=== PATIENT | male | born 1925 | race Caucasian/White ===

== ENCOUNTER → 2016-06-10 | Outpatient (CLI) | payer MEDICARE, OTHER ==
[~2016-06-10] MED LIST: ALPR.25 PO; ASPI1TAB69 PO; DILT60TA PO; FURO1TAB62 PO; METO50TA PO; MULTTAB67 PO; OMEP20TA PO; POTA10CA PO; PRAV20TA2 PO; ZOFR4TAB PO; [UNRECOGNIZED DRUG - CODE] IMPLANT
[2016-06-10 13:15] LABS: AUTOMATED NEUTROPHIL # 5.2 TH/MM3 (1.8-7.7); BASOPHIL % 0.5 % (0.0-2.0); EOSINOPHIL # 0.6 TH/MM3 (0-0.4); EOSINOPHIL % 7.2 % (0.0-4.0); HEMATOCRIT 37.7 % (39.0-51.0); HEMO FLAGS DIFF FINAL; LYMPH % 20.5 % (9.0-44.0); LYMPHOCYTE # 1.8 TH/MM3 (1.0-4.8); MEAN CELL VOLUME 93.1 FL (80.0-100.0); MEAN CORPUSCULAR HEMOGLOBIN 29.9 PG (27.0-34.0); MEAN CORPUSCULAR HGB CONC 32.1 % (32.0-36.0); MONO % 11.7 % (0.0-8.0); NEUT % 60.1 % (16.0-70.0); PLATELET COUNT 167 TH/MM3 (150-450); RED BLOOD COUNT 4.05 MIL/MM3 (4.50-5.90); RED CELL DISTRIBUTION WIDTH 14.7 % (11.6-17.2); WHITE BLOOD COUNT 8.7 TH/MM3 (4.0-11.0)
[2016-06-10 13:30] LABS: ALT (GPT) 24 U/L (12-78); ANION GAP 2 MEQ/L (5-15); AST (GOT) 18 U/L (15-37); BICARBONATE 34.5 MEQ/L (21.0-32.0); BLOOD UREA NITROGEN 29 MG/DL (7-18); CHLORIDE 105 MEQ/L (98-107); GLOMERULAR FILTRATION RATE 67 ML/MIN (>89); POTASSIUM 4.2 MEQ/L (3.5-5.1); SODIUM (NA) 141 MEQ/L (136-145)
[2016-06-10 13:31] LABS: ALKALINE PHOSPHATASE 81 U/L (45-117); TOTAL BILIRUBIN ADULT 0.6 MG/DL (0.2-1.0)
== END ==
LOC: PLAB 10:58
PROVIDERS: ATTEND Urology
DX: R53.83 Other fatigue (principal); E29.1 Testicular hypofunction; Z12.5 Encounter for screening for malignant neoplasm of prostate; Z79.899 Other long term (current) drug therapy
CPT/HCPCS: 36415; 80053; 84403; 85025; G0103

== ENCOUNTER 2016-06-18 18:33 | Inpatient (IN) | payer MEDICARE, OTHER ==
[~2016-06-18] VITALS: Ht 170.2 cm; Wt 65.0 kg
[2016-06-18 18:42] VITALS: BP 125/59; PULSE 114; RESP 18; TEMP 98.8; O2SAT 96
[2016-06-18 21:03] VITALS: BP 140/69; PULSE 96; RESP 18; O2SAT 95
[2016-06-18] MEDS ORDERED: PIPERACIL-TAZO 4.5 GM PREMIX 100 ML IV STA (21:07)
[2016-06-18] MEDS ORDERED: VANCOMYCIN INJ 900 MG in SODIUM CHLOR 0.9% 250 ML INJ 250 ML IV STA (21:07)
--- NOTE | 2016-06-18 21:12 | PD ---
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 He had a pain pump implanted in the right side of his abdomen on January 14. He needs a pain pump because he has chronic back and knee pain. He gets morphine via the pump. He was implanted by Dr. Sosa. He had some nausea yesterday. Today earlier today he noted that the site of the pump was red and swollen. It is painful. PFSH Past Medical History Hx Anticoagulant Therapy: Yes (162 ASA DAILY) Arthritis: Yes (OA & RA) Atrial Fibrillation: Yes Autoimmune Disease: No Anxiety: Yes Heart Rhythm Problems: No Cancer: No Cardiac Catheterization: Yes (2001) Cardiovascular Problems: Yes (HTN, CHOL) High Cholesterol: No Chest Pain: No Congestive Heart Failure: No Diabetes: No Diminished Hearing: No Endocrine: No Gastrointestinal Disorders: No Glaucoma: No Genitourinary: Yes Hepatitis: No Hiatal Hernia: No Heparin Induced Thrombocytopen: No Hypertension: Yes Immune Disorder: No Implanted Vascular Access Dvce: Yes Musculoskeletal: Yes (POLYMYALGIA RHEUMATICA) Neurologic: No Psychiatric: No Respiratory: No Integumentary: No Immunizations Current: Yes Myocardial Infarction: No Thyroid Disease: No Ulcer: Yes (01-13-2001.) Tetanus Vaccination: < 5 Years Influenza Vaccination: Yes Past Surgical History Abdominal Surgery: Yes ( COLOSTOMY -1999 WITH REVERSAL 6 MON LATER-1999.BENIGN TUMOR RESECTION) Cardiac Surgery: Yes (PACEMAKER) Coronary Artery Bypass Graft: No Eye Surgery: Yes (DETACHED RETINA) Neurologic Surgery: Yes (CARPEL TUNNEL RELEASE RIGHT HAND) Pacemaker: Yes (MEDTRONIC) Thoracic Surgery: No Tonsillectomy: Yes Other Surgery: Yes (ABD HERNIA REPAIR-1991.) Family History Family Myocardial Infarction: Yes (FATHER AND BROTHER IN) Social History Alcohol Use: No Tobacco Use: No (QUIT 1958) Substance Use: No Allergies-Medications (Allergen,Severity, Reaction): Coded Allergies: Contrast Media (Verified Allergy, Severe, EDEMA, 06/18/16) Iodine (Verified Allergy, Severe, "SWELLS", 06/18/16) Pradaxa (Verified Allergy, Severe, SHAKES/WEAKNESS, 06/18/16) Sulfa (Verified Allergy, Severe, NAUSEA, 06/18/16) RASH Iohexol (OMNIPAQUE) (Verified Allergy, Unknown, IV REACTION ON MEDROL.DO NOT GIVE!!!!!, 06/18/16) Uncoded Allergies: REGLAN WITH MORPHINE (Adverse Reaction, Severe, HALLUCINATE, 03/26/16) CONFIRMED 11/02/13 TM.. Reported Meds & Prescriptions Reported Meds & Active Scripts Active Reported Morphine Inj (Morphine Sulfate) Unknown Strength Inj 10 % IMPLANT DIRECTED Pravastatin 20 Mg Tab 20 Mg PO HS Potassium Chloride ER (Potassium Chloride) 10 Meq Cap 10 Meq PO DAILY PRN Zofran (Ondansetron HCl) 4 Mg Tab 4 Mg PO Q6HR PRN Omeprazole 20 Mg Tab 20 Mg PO DAILY Multiple Vitamin 1 Tab 1 Tab PO DAILY Metoprolol Tartrate 50 Mg Tab 50 Mg PO BID Lasix (Furosemide) 20 Mg Tab 20 Mg PO DAILY PRN Diltiazem (Diltiazem HCl) 60 Mg Tab 60 Mg PO QID Aspirin 81 Mg Tabdr 162 Mg PO HS Xanax (Alprazolam) 0.25 Mg Tab 0.25 Mg PO DAILY PRN Review of Systems General / Constitutional: No: Fever, Chills Eyes: No: Diploplia, Blurred Vision HENT: No: Headaches Cardiovascular: No: Chest Pain or Discomfort, Palpitations Respiratory: No: Cough, Shortness of Breath Gastrointestinal: No: Vomiting, Diarrhea Genitourinary: No: Frequency, Dysuria Musculoskeletal: No: Myalgias Skin: Positive Rash Neurologic: No: Weakness Psychiatric: No: Depression Endocrine: No: Heat Intolerance Physical Exam Narrative GENERAL: Well-developed male SKIN: Warm and dry. On the right side of the abdomen there is an area of erythema and warmth which overlies his pain pump HEAD: Atraumatic. Normocephalic. EYES: Pupils equal and round. No scleral icterus. No injection or drainage. ENT: No nasal bleeding or discharge. Mucous membranes pink and moist. NECK: Trachea midline. No JVD. CARDIOVASCULAR: Regular rate and rhythm. No murmur appreciated. RESPIRATORY: No accessory muscle use. Clear to auscultation. Breath sounds equal bilaterally. GASTROINTESTINAL: Abdomen soft, non-tender, nondistended. Hepatic and splenic margins not palpable. MUSCULOSKELETAL: No obvious deformities. No clubbing. No cyanosis. No edema. NEUROLOGICAL: Awake and alert. No obvious cranial nerve deficits. Motor grossly within normal limits. Normal speech. PSYCHIATRIC: Appropriate mood and affect; insight and judgment normal. Data Data Last Documented VS Vital Signs Date Time Temp Pulse Resp B/P Pulse Ox O2 Delivery O2 Flow Rate FiO2 06/18/16 22:41 100 18 135/66 95 Room Air 06/18/16 18:42 98.8 Orders Complete Blood Count With Diff (06/18/16 21:) Comprehensive Metabolic Panel (06/18/16 21:07) Prothrombin Time / Inr (Pt) (06/18/16 21:07) Act Partial Throm Time (Ptt) (06/18/16:07) Lactic Acid Sepsis Protocol (06/18/16:07) Urinalysis - C+S If Indicated (06/18/16 21:07) Blood Culture (06/18/16 21:07) Blood Glucose (06/18/16 21:07) Ecg Monitoring (06/18/16 21:) Iv Access Insert/Monitor (06/18/16 21:07) Oximetry (06/18/16 21:07) Oxygen Administration (06/18/16 21:07) Acetaminophen (Tylenol) (06/18/16 21:15) Ct Abd/Pel W/O Iv Contrast (06/18/16 21:07) Piperacil-Tazo 4.5 Gm Premix (Zosyn 4.5 (06/18/16 21:07) Vancomycin Inj (Vancomycin Inj) (06/18/16 21:07) Aspirin Ec (Ecotrin Ec) (06/19/16 21:00) Pantoprazole (Protonix) (06/19/16 09:00) Pravastatin (Pravachol) (06/19/16 21:00) Admit Order (Ed Use Only) (06/18/16 23:09) Labs Laboratory Tests Test 06/18/16 21:20 White Blood Count 14.1 TH/MM3 Red Blood Count 4.80 MIL/MM3 Hemoglobin 14.5 GM/DL Hematocrit 43.0 % Mean Corpuscular Volume 89.7 FL Mean Corpuscular Hemoglobin 30.2 PG Mean Corpuscular Hemoglobin 33.7 % Concent Red Cell Distribution Width 13.3 % Platelet Count 161 TH/MM3 Mean Platelet Volume 7.4 FL Neutrophils (%) (Auto) 70.3 % Lymphocytes (%) (Auto) 17.4 % Monocytes (%) (Auto) 8.9 % Eosinophils (%) (Auto) 2.5 % Basophils (%) (Auto) 0.9 % Neutrophils # (Auto) 9.8 TH/MM3 Lymphocytes # (Auto) 2.5 TH/MM3 Monocytes # (Auto) 1.3 TH/MM3 Eosinophils # (Auto) 0.4 TH/MM3 Basophils # (Auto) 0.1 TH/MM3 CBC Comment DIFF FINAL Differential Comment Prothrombin Time 11.4 SEC Prothromb Time International 1.0 RATIO Ratio Activated Partial 32.5 SEC Thromboplast Time Sodium Level 133 MEQ/L Potassium Level 4.5 MEQ/L Chloride Level 95 MEQ/L Carbon Dioxide Level 30.6 MEQ/L Anion Gap 7 MEQ/L Blood Urea Nitrogen 22 MG/DL Creatinine 1.00 MG/DL Estimat Glomerular Filtration 70 ML/MIN Rate Random Glucose 91 MG/DL Lactic Acid Level 1.3 mmol/L Calcium Level 8.1 MG/DL Total Bilirubin 1.4 MG/DL Aspartate Amino Transf 21 U/L (AST/SGOT) Alanine Aminotransferase 22 U/L (ALT/SGPT) Alkaline Phosphatase 83 U/L Total Protein 6.4 GM/DL Albumin 3.2 GM/DL [facility] Medical Decision Making Medical Screen Exam Complete: Yes Emergency Medical Condition: Yes Medical Record Reviewed: Yes Differential Diagnosis Differential includes abdominal wall cellulitis, abscess Narrative Course White count is elevated at 14,000. Patient has been started on Zosyn and vancomycin. Lactic acid level is 1.3 Sepsis Criteria SIRS Criteria (2 or more): Temp > 100.9 or < 96.8, WBC > 85033, < 4000 or > 10 % bands Sepsis Criteria (SIRS+source): Infect source susp/known Diagnosis Primary Impression: Cellulitis, abdominal wall Admitting Information Admitting Physician Requests: Admit Noel Thomas MD Jun 18, 2016 21:12
[2016-06-18] MEDS ORDERED: ACETAMINOPHEN 325 MG TAB PO ONE (21:15)
[2016-06-18 21:29] VITALS: O2SAT 95
[2016-06-18 21:33] LABS: AUTOMATED NEUTROPHIL # 9.8 TH/MM3 (1.8-7.7); BASOPHIL # 0.1 TH/MM3 (0-0.2); BASOPHIL % 0.9 % (0.0-2.0); EOSINOPHIL # 0.4 TH/MM3 (0-0.4); EOSINOPHIL % 2.5 % (0.0-4.0); HEMO FLAGS DIFF FINAL; LYMPH % 17.4 % (9.0-44.0); LYMPHOCYTE # 2.5 TH/MM3 (1.0-4.8); MEAN CELL VOLUME 89.7 FL (80.0-100.0); MEAN CORPUSCULAR HEMOGLOBIN 30.2 PG (27.0-34.0); MEAN CORPUSCULAR HGB CONC 33.7 % (32.0-36.0); MONO % 8.9 % (0.0-8.0); NEUT % 70.3 % (16.0-70.0); PLATELET COUNT 161 TH/MM3 (150-450); RED CELL DISTRIBUTION WIDTH 13.3 % (11.6-17.2); WHITE BLOOD COUNT 14.1 TH/MM3 (4.0-11.0)
[2016-06-18 21:40] LABS: CHLORIDE 95 MEQ/L (98-107); POTASSIUM 4.5 MEQ/L (3.5-5.1); SODIUM (NA) 133 MEQ/L (136-145)
[2016-06-18 21:43] LABS: ANION GAP 7 MEQ/L (5-15); BICARBONATE 30.6 MEQ/L (21.0-32.0)
[2016-06-18 21:44] LABS: BLOOD UREA NITROGEN 22 MG/DL (7-18)
[2016-06-18 21:45] LABS: APTT (PATIENT) 32.5 SEC (24.3-30.1); PROTHROMBIN TIME - PATIENT 11.4 SEC (9.8-11.6)
[2016-06-18 21:46] LABS: ALT (GPT) 22 U/L (12-78)
[2016-06-18 21:47] LABS: AST (GOT) 21 U/L (15-37); GLOMERULAR FILTRATION RATE 70 ML/MIN (>89)
[2016-06-18 21:48] LABS: TOTAL BILIRUBIN ADULT 1.4 MG/DL (0.2-1.0)
[2016-06-18 21:49] LABS: ALKALINE PHOSPHATASE 83 U/L (45-117)
[2016-06-18 22:41] VITALS: BP 135/66; PULSE 100; RESP 18; O2SAT 95
--- NOTE | 2016-06-18 22:45 | RADHPO ---
EXAM DATE/TIME: 06/18/2016 22:03 [place] COMPARISON: CT ABDOMEN & PELVIS W/O CONTRAST, March 26, 2016, 10:10. INDICATIONS : Pain, redness, and swelling at site of pain pump. ORAL CONTRAST: No oral contrast ingested. RADIATION DOSE: 7.56 CTDIvol (mGy) MEDICAL HISTORY : Hypertension. Gastric ulcers. SURGICAL HISTORY : Pacemaker. Colectomy. Pain pump. ENCOUNTER: Initial ACUITY: 2 days PAIN SCALE: 7/10 LOCATION: Right lower quadrant TECHNIQUE: Volumetric scanning of the abdomen and pelvis was performed. Using automated exposure control and ad justment of the mA and/or kV according to patient size, radiation dose was kept as low as reasonably achievable to obtain optimal diagnostic quality images. FINDINGS: Compare March 2016. Small bilateral pleural effusions present. Pacer leads overlie right atrium an d right ventricle. Minimal basilar atelectasis. No acute findings in the liver, spleen, adrenals or pancreas. Previous bilateral renal cysts again no ulysses. Calcified gallstones present in gallbladder. There is mild constipation, especially rectal. No significant mural thickening of bowel on the curren t exam. No bowel obstruction. No free air or significant free fluid. 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 There is some soft tissue swelling and edematous changes around the infusion pump most characteristic of a cellulitis. No discrete or drainable abscess identified. CONCLUSION: 1. Soft tissue swelling and edema around the infusion pump in right lower quadrant most characteristi c of cellulitis. No discrete abscess identified. 2. No acute findings within the abdomen. Mild constipation. Multiple gallstones. Mild anasarca. Basil ar lung airspace disease has improved. Ki Maldonado MD on June 18, 2016 at 22:38 Board Certified Radiologist. This report was verified electronically.
[2016-06-18] MEDS ORDERED: SODIUM CHLORIDE 0.9% FLUSH 5 ML FLUSH FLUSH PRN (23:15)
[2016-06-18] MEDS ORDERED: ACETAMINOPHEN 325 MG TAB PO PRN (23:15)
[2016-06-18] MEDS ORDERED: NALOXONE HCL 0.4 MG/ML AMP IV PRN (23:15)
[2016-06-18] MEDS ORDERED: Vancomycin Consult Pharmacy 1 EA OTHER SCH (23:15)
[2016-06-18] MEDS: SODIUM CHLOR 0.9% 1000 ML INJ 1,000 ML IV SCH (23:29)
[2016-06-18] MEDS: HEPARIN SODIUM - SQ 10,000 UNITS/ML VIAL SQ SCH (23:29)
[2016-06-19] VITALS (7 sets, daily range): BP systolic 100–162; BP diastolic 50–74; PULSE 62–111; RESP 16–21; TEMP 97.4–100.6; O2SAT 93–96
[2016-06-19 02:51] LABS: BLOOD, URINE SMALL (NEG); GLUCOSE,URINE NEG (NEG); KETONE, URINE 40 mg/dL (NEG); NITRITE,URINE NEG (NEG)
[2016-06-19 03:00] LABS: URINE COLOR YELLOW (YELLW/STRAW); WBC, URINE 0-2 /hpf (0-5)
[2016-06-19 03:01] LABS: COMMENT (UR) CULT NOT INDICATED; CULTURE IF INDICATED CULT NOT INDICATED; SQUAMOUS EPITHELIAL CELL URINE 0-5 /hpf (0-5)
[2016-06-19] MEDS: PIPERACIL-TAZO 3.375 GM PREMIX 50 ML IV SCH ×3 (06:13→22:04)
[2016-06-19 07:48] LABS: AUTOMATED NEUTROPHIL # 10.9 TH/MM3 (1.8-7.7); BASOPHIL # 0.1 TH/MM3 (0-0.2); BASOPHIL % 0.7 % (0.0-2.0); EOSINOPHIL # 0.3 TH/MM3 (0-0.4); EOSINOPHIL % 2.3 % (0.0-4.0); HEMATOCRIT 41.2 % (39.0-51.0); LYMPH % 11.3 % (9.0-44.0); LYMPHOCYTE # 1.5 TH/MM3 (1.0-4.8); MEAN CELL VOLUME 90.2 FL (80.0-100.0); MEAN CORPUSCULAR HEMOGLOBIN 29.5 PG (27.0-34.0); MEAN CORPUSCULAR HGB CONC 32.7 % (32.0-36.0); NEUT % 82.7 % (16.0-70.0); PLATELET COUNT 141 TH/MM3 (150-450); RED BLOOD COUNT 4.56 MIL/MM3 (4.50-5.90); RED CELL DISTRIBUTION WIDTH 13.6 % (11.6-17.2); WHITE BLOOD COUNT 13.2 TH/MM3 (4.0-11.0)
[2016-06-19 07:54] LABS: HEMO FLAGS DIFF FINAL
[2016-06-19 07:56] LABS: POTASSIUM 4.5 MEQ/L (3.5-5.1)
[2016-06-19 08:01] LABS: BICARBONATE 26.7 MEQ/L (21.0-32.0)
[2016-06-19] MEDS: PANTOPRAZOLE SOD 20 MG DELAYED RELEASE TAB PO SCH (08:35)
[2016-06-19] MEDS: ONDANSETRON HCL 4 MG/2 ML VIAL IVP PRN (08:35)
[2016-06-19] MEDS: SODIUM CHLOR 0.9% 1000 ML INJ 1,000 ML IV SCH ×2 (08:36→18:12)
[2016-06-19] MEDS: SODIUM CHLORIDE 0.9% FLUSH 5 ML FLUSH FLUSH SCH ×2 (08:36→20:57)
[2016-06-19] MEDS ORDERED: MORPHINE SULFATE 4 MG/ML INJ IV PUSH PRN (09:00)
[2016-06-19] MEDS: HEPARIN SODIUM - SQ 10,000 UNITS/ML VIAL SQ SCH ×2 (09:05→22:06)
[2016-06-19] MEDS ORDERED: ONDANSETRON ODT 4 MG TAB PO PRN (09:15)
[2016-06-19] MEDS ORDERED: POTASSIUM CHLORIDE 10 MEQ CAP PO PRN (09:15)
[2016-06-19] MEDS ORDERED: ALPRAZolam 0.25 MG TAB PO PRN (09:15)
[2016-06-19] MEDS ORDERED: FUROSEMIDE 20 MG TAB PO PRN (09:15)
[2016-06-19] MEDS: MULTIVITAMIN TAB PO SCH (10:07)
[2016-06-19] MEDS: METOPROLOL TARTRATE 50 MG TAB PO SCH ×2 (10:07→20:57)
[2016-06-19] MEDS: ACETAMINOPHEN/HYDROcodone 325 MG/5 MG TAB PO PRN ×2 (10:07→21:04)
--- NOTE | 2016-06-19 10:21 | MH ---
cc: JOHNATHAN ALMAZAN MD DATE OF ADMISSION: 06/18/2016 CHIEF COMPLAINT Redness, swelling and pain in the anterior abdominal wall at the pain pump site. HISTORY OF PRESENT ILLNESS This is an 89-year-old male with a past medical and surgical history significant for arthritis, atrial fibrillation, history of cardiac catheterization in 2001 (was normal per patient's report), history of hypertension, hyperlipidemia. History of lower back pain and leg pain chronic, having a pain pump implanted by Dr. Sosa. History of hypertension, polymyalgia rheumatica. History of colostomy in 1999 with reversal of colostomy after six months for benign colon tumor. History of pacemaker placement, detached retina, carpal tunnel right hand, history of abdominal wall hernia repair in 1991. Came to the ER at [facility] complaining of redness, swelling and pain at the pain pump area in the anterior abdominal wall on the right side. The patient needs a pain pump because he has chronic back pain and knee pain, and his pain pump was put in by Dr. Sosa per patient's report. The patient has some nausea and he came to the ER at [facility]. His anterior abdominal wall is swollen, red and painful. Other than that nothing significant. PAST MEDICAL AND SURGICAL HISTORY As dictated above. SOCIAL HISTORY Denies smoking, drinking, taking any drugs. He is an ex-smoker, quit in 1958. Lives at home with . He is a retired person. FAMILY HISTORY Significant for coronary artery disease. Father diet and brother of heart attack. ALLERGIES CONTRAST MEDIA, IODINE, PRADAXA, SULFA, OMNIPAQUE, REGLAN WITH MORPHINE. MEDICATIONS 1. Morphine pump. 2. Pravastatin 20 mg p.o. h.s. 3. Potassium chloride 10 mEq p.o. daily. 4. Zofran 4 mg p.o. q.6 hours p.r.n. nausea, vomiting. 5. Omeprazole 20 mg p.o. daily. 6. Multivitamin p.o. daily. 7. Metoprolol 50 mg twice a day. 8. Lasix 20 mg p.o. daily. 9. Diltiazem 60 mg p.o. q.i.d. 10. Aspirin 81 mg p.o. daily. 11. Xanax 0.25 mg p.o. daily p.r.n. anxiety. REVIEW OF SYSTEMS Positive for redness, swelling and pain in the anterior abdominal wall area and also nausea and lower back pain and leg pain. All other review of systems are negative. PHYSICAL EXAMINATION GENERAL: This is an 89-year-old male laying on the bed, not in acute distress. VITAL SIGNS: Temperature 100.6, heart rate 111, respiration 21, blood pressure 162/68, O2 saturation 94% on room air. HEENT: Normocephalic, atraumatic. Extraocular movements intact. Pupils equal, round and reactive to light. Oral mucosa moist. NECK: Neck is supple. No visible thyromegaly or neck mass. Trachea central. CARDIOVASCULAR SYSTEM: Regular rate and rhythm. RESPIRATORY: Respiration is clear to auscultation bilaterally. ABDOMEN: Abdomen soft, tender at the anterior abdominal wall area. Redness, swelling and tender at the pain pump implant area. EXTREMITIES: No cyanosis or clubbing. Full range of motion of all extremities. NEUROLOGIC: Awake, alert, oriented x4. No focal deficit. SKIN: Shows erythema, swelling and tenderness in the anterior abdominal wall area at the pain pump implant area. PSYCHIATRIC: The patient cooperative. Mood and affect are normal. LABORATORY DATA CBC totally unremarkable except for WBC count 13.2 high, platelet count 141 low, neutrophil is 82.7 high. BMP totally unremarkable except for sodium 135 low, chloride 97 low, BUN 24 high, creatinine 1.0, GFR 70, glucose 58, calcium 7.9. PT 11.4, INR 1.0, APTT 32.5. Urine examination shows small occult blood, 40 ketones, 4-9 RBCs. Blood cultures x2 done negative so far. IMAGING CT of the abdomen and pelvis done shows soft tissue swelling and edema around the infusion pump in the right lower quadrant most characteristic of cellulitis. No discrete abscess identified. No acute finding within the abdomen. Mild constipation. Multiple gallstones. Mild anasarca. Basilar lung airspace disease has improved. ASSESSMENT AND PLAN 1. This is an 89-year male who came to the ER diagnosed with and cellulitis of the anterior abdominal wall at the pain pump site area. Blood culture done negative so far. The patient is on vancomycin and Zosyn. Infectious Disease consulted. General surgery consulted. Further recommendation per cruise consultant. 2. History of hyperlipidemia. Continue with pravastatin 20 mg p.o. daily. 3. History of coronary artery disease. Continue home medication. 4. History of gastroesophageal reflux disease. Protonix 20 mg p.o. daily. 5. 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 6. History of pacemaker placement. 7. History of polymyalgia rheumatica. 8. History of atrial fibrillation. 9. History of anxiety. Continue with the Xanax 0.25 mg p.o. daily p.r.n. anxiety. 10. Mild hyponatremia. We will monitor. 11. DVT prophylaxis. Heparin 5000 units subcutaneous twice a day. 12. GI prophylaxis. Protonix 20 mg p.o. daily. We are going to manage the patient on a daily basis and make recommendations on a daily basis. Johnathan Almazan MD EA/SALMA /9:12 AM /9:31 AM
[2016-06-19] MEDS: DILTIAZEM HCL 60 MG TAB PO SCH ×3 (12:56→20:57)
[2016-06-19] MEDS: VANCOMYCIN INJ 1,000 MG in SODIUM CHLOR 0.9% 250 ML INJ 250 ML IV SCH (20:52)
[2016-06-19] MEDS: ASPIRIN EC 81 MG TABEC PO SCH (20:57)
[2016-06-19] MEDS: PRAVASTATIN SOD 20 MG TAB PO SCH (20:58)
[2016-06-20 00:49] VITALS: BP 105/59; PULSE 71; RESP 18; TEMP 98.6; O2SAT 91
[2016-06-20] MEDS: SODIUM CHLOR 0.9% 1000 ML INJ 1,000 ML IV SCH (01:23)
[2016-06-20 04:00] VITALS: BP 108/61; PULSE 60; RESP 16; TEMP 98.1; O2SAT 92
[2016-06-20] MEDS: PIPERACIL-TAZO 3.375 GM PREMIX 50 ML IV SCH ×3 (05:16→22:45)
[2016-06-20 07:22] LABS: AUTOMATED NEUTROPHIL # 6.7 TH/MM3 (1.8-7.7); BASOPHIL % 0.2 % (0.0-2.0); EOSINOPHIL # 0.6 TH/MM3 (0-0.4); EOSINOPHIL % 6.2 % (0.0-4.0); HEMATOCRIT 34.3 % (39.0-51.0); HEMO FLAGS DIFF FINAL; LYMPH % 12.8 % (9.0-44.0); LYMPHOCYTE # 1.2 TH/MM3 (1.0-4.8); MEAN CELL VOLUME 92.1 FL (80.0-100.0); MEAN CORPUSCULAR HEMOGLOBIN 31.2 PG (27.0-34.0); MEAN CORPUSCULAR HGB CONC 33.9 % (32.0-36.0); MONO % 10.4 % (0.0-8.0); NEUT % 70.4 % (16.0-70.0); PLATELET COUNT 132 TH/MM3 (150-450); RED BLOOD COUNT 3.73 MIL/MM3 (4.50-5.90); RED CELL DISTRIBUTION WIDTH 13.6 % (11.6-17.2); WHITE BLOOD COUNT 9.5 TH/MM3 (4.0-11.0)
[2016-06-20 07:28] LABS: POTASSIUM 4.3 MEQ/L (3.5-5.1)
[2016-06-20 08:00] VITALS: BP 112/61; PULSE 74; RESP 19; TEMP 100.3; O2SAT 95
[2016-06-20 08:30] LABS: BICARBONATE 26.3 MEQ/L (21.0-32.0); CALCIUM-PROTEIN CORRECTED 8.7 MG/DL (8.5-10.1); TOTAL BILIRUBIN ADULT 0.8 MG/DL (0.2-1.0)
--- NOTE | 2016-06-20 08:59 | HHI.PR ---
Subjective History of Present Illness Patient still have redness and pain and swelling right side Anterior abdominal wall Pain managment Dr Ian amaral put the pain pump in and they do not come to [facility].. pain pump need to be removed per ID..General surgery input noted Transfer the patient to [facility] d/w RUBIN Georges at bed side. Review of Systems Constitutional Constitutional: Fatigue, Weakness Integumentary Skin Remarks Redness/swelling and pain anterior abdominal wall. Vitals/Results Intake & Output 06/19/16 06/19/16 06/20/16 15:00 23:00 07:00 Intake Total 240 ml 2849 ml 976 ml Output Total 200 ml 275 ml 175 ml Balance 40 ml 2574 ml 801 ml Intake Oral 240 ml IV Total 2849 ml 976 ml Output Urine Total 200 ml 275 ml 175 ml # Bowel Movements 0 Vital Signs Vital Signs Date Time Temp Pulse Resp B/P Pulse Ox O2 Delivery O2 Flow Rate FiO2 06/20/16 08:00 100.3 74 19 112/61 95 06/20/16 04:00 98.1 60 16 108/61 92 06/20/16 00:49 98.6 71 18 105/59 91 06/19/16 20:57 98.0 76 16 100/71 95 06/19/16 19:00 Nasal Cannula 2.00 06/19/16 16:00 97.4 62 17 100/50 96 06/19/16 13:02 96 Nasal Cannula 2.00 06/19/16 12:00 98.3 87 20 113/54 95 06/19/16 10:45 93 Nasal Cannula 2.00 CBC/BMP: 06/20/16 0625 06/20/16 0625 Lab Results Laboratory Tests Test 06/20/16 06:25 White Blood Count 9.5 TH/MM3 Red Blood Count 3.73 MIL/MM3 Hemoglobin 11.6 GM/DL Hematocrit 34.3 % Mean Corpuscular Volume 92.1 FL Mean Corpuscular Hemoglobin 31.2 PG Mean Corpuscular Hemoglobin 33.9 % Concent Red Cell Distribution Width 13.6 % Platelet Count 132 TH/MM3 Mean Platelet Volume 7.4 FL Neutrophils (%) (Auto) 70.4 % Lymphocytes (%) (Auto) 12.8 % Monocytes (%) (Auto) 10.4 % Eosinophils (%) (Auto) 6.2 % Basophils (%) (Auto) 0.2 % Neutrophils # (Auto) 6.7 TH/MM3 Lymphocytes # (Auto) 1.2 TH/MM3 Monocytes # (Auto) 1.0 TH/MM3 Eosinophils # (Auto) 0.6 TH/MM3 Basophils # (Auto) 0.0 TH/MM3 CBC Comment DIFF FINAL Differential Comment Sodium Level 135 MEQ/L Potassium Level 4.3 MEQ/L Chloride Level 99 MEQ/L Carbon Dioxide Level 26.3 MEQ/L Anion Gap 10 MEQ/L Blood Urea Nitrogen 22 MG/DL Creatinine 1.10 MG/DL Estimat Glomerular Filtration 63 ML/MIN Rate Random Glucose 80 MG/DL Calcium Level 7.4 MG/DL Protein Corrected Calcium 8.7 MG/DL Total Bilirubin 0.8 MG/DL Aspartate Amino Transf 21 U/L (AST/SGOT) Alanine Aminotransferase 18 U/L (ALT/SGPT) Alkaline Phosphatase 69 U/L Total Protein 4.8 GM/DL Albumin 2.2 GM/DL Physical Exam General General Appearance: Well Developed, Well Nourished, No Acute Distress, Comfortable Eyes Eye Exam: Pupils Equal, Pupils Reactive Throat Throat Exam: Oral Mucosa [place] & Moist, Oral Pharynx Normal Neck Neck Exam: Neck Supple, Trachea Midline Pulmonary Resp Exam: Clear Bilaterally, Breath Sounds Equal, No Distress Cardiology CV Exam: Regular, Normal Sinus Rhythm Gastrointestinal/Abdomen GI Exam: Soft, Non-Tender, Bowel Sounds Present Musculoskeletal MS Exam: Normal Tone Integumentary Skin Exam: Warm, Dry Skin Remarks erythema /swelling and tenderness anterior abdominal wall right side.. Extremeties Extremities Exam: No Edema Neurologic Neuro Exam: Alert, Awake, Oriented, Speech Clear, Moving All Extremities, No Focal Deficits VTE Prophylaxis VTE Prophylaxis Meds: Heparin PUD Prophylasis PUD Prophylaxis: Protonix Assessment/Plan Assessment/Plan ASSESSMENT AND PLAN 1. This is an 89-year male who came to the ER diagnosed with cellulitis of the anterior abdominal wall at the pain pump site area. Blood culture done negative so far. The patient is on vancomycin and Zosyn. Infectious Disease input noted. Pain managment Dr Ian amaral put the pain pump in and they do not come to [facility].. pain pump need to be removed per ID General surgery input noted. Further recommendation per computer consultant. 2. History of hyperlipidemia. Continue with pravastatin 20 mg p.o. daily. 3. History of coronary artery disease. Continue home medication. 4. History of gastroesophageal reflux disease. Protonix 20 mg p.o. daily. 5. 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 6. History of pacemaker placement. 7. History of polymyalgia rheumatica. 8. History of atrial fibrillation. 9. History of anxiety. Continue with the Xanax 0.25 mg p.o. daily p.r.n. anxiety. 10. Mild hyponatremia. We will monitor. 11. DVT prophylaxis. Heparin 5000 units subcutaneous twice a day. 12. GI prophylaxis. Protonix 20 mg p.o. daily. Check CBC with diff CMP in AM. We are going to manage the patient on a daily basis and make recommendations on a daily basis. Discussed Condition with: Patient Johnathan Hernandez MD Jun 20, 2016 08:59
[2016-06-20] MEDS: SODIUM CHLORIDE 0.9% FLUSH 5 ML FLUSH FLUSH SCH ×2 (09:00→21:16)
[2016-06-20] MEDS: DILTIAZEM HCL 60 MG TAB PO SCH ×4 (09:50→21:20)
[2016-06-20] MEDS: HEPARIN SODIUM - SQ 10,000 UNITS/ML VIAL SQ SCH ×2 (09:50→21:21)
[2016-06-20] MEDS: METOPROLOL TARTRATE 50 MG TAB PO SCH ×2 (09:50→21:11)
[2016-06-20] MEDS: MULTIVITAMIN TAB PO SCH (09:50)
[2016-06-20] MEDS: PANTOPRAZOLE SOD 20 MG DELAYED RELEASE TAB PO SCH (09:50)
[2016-06-20] MEDS: ACETAMINOPHEN/HYDROcodone 325 MG/5 MG TAB PO PRN ×3 (10:02→18:24)
[2016-06-20 12:00] VITALS: BP 111/68; PULSE 79; RESP 18; TEMP 99.4; O2SAT 95
[2016-06-20 16:00] VITALS: BP 104/57; PULSE 66; RESP 19; TEMP 97.2; O2SAT 94
[2016-06-20 20:00] VITALS: BP 115/67; PULSE 82; RESP 18; TEMP 98.4; O2SAT 98
[2016-06-20] MEDS ORDERED: ARTIFICIAL TEARS OPTH SOLN 15 ML BTL LEFT EYE PRN (20:30)
[2016-06-20] MEDS: PRAVASTATIN SOD 20 MG TAB PO SCH (21:11)
[2016-06-20] MEDS: ASPIRIN EC 81 MG TABEC PO SCH (21:11)
[2016-06-20] MEDS: VANCOMYCIN INJ 1,000 MG in SODIUM CHLOR 0.9% 250 ML INJ 250 ML IV SCH (21:12)
[2016-06-21] VITALS: BP 130/69; PULSE 82; RESP 18; TEMP 100.4; O2SAT 96
[2016-06-21] MEDS: PIPERACIL-TAZO 3.375 GM PREMIX 50 ML IV SCH ×2 (05:00→13:15)
[2016-06-21 06:46] LABS: AUTOMATED NEUTROPHIL # 5.4 TH/MM3 (1.8-7.7); BASOPHIL % 0.3 % (0.0-2.0); EOSINOPHIL # 0.7 TH/MM3 (0-0.4); EOSINOPHIL % 8.1 % (0.0-4.0); HEMO FLAGS DIFF FINAL; LYMPH % 15.8 % (9.0-44.0); LYMPHOCYTE # 1.4 TH/MM3 (1.0-4.8); MEAN CELL VOLUME 89.5 FL (80.0-100.0); MEAN CORPUSCULAR HGB CONC 32.4 % (32.0-36.0); MONO % 12.3 % (0.0-8.0); NEUT % 63.5 % (16.0-70.0); PLATELET COUNT 173 TH/MM3 (150-450); RED BLOOD COUNT 4.14 MIL/MM3 (4.50-5.90); RED CELL DISTRIBUTION WIDTH 13.1 % (11.6-17.2); WHITE BLOOD COUNT 8.6 TH/MM3 (4.0-11.0)
--- NOTE | 2016-06-21 06:47 | MB ---
cc: CYNDY LE MD DATE OF CONSULTATION 06/20/2016 REASON FOR CONSULTATION Right lower quadrant cellulitis. Abscess. HISTORY OF PRESENT ILLNESS The patient is an 89-year-old male who presented with significant multiple medical issues, a past medical history of atrial fibrillation, arthritis, coronary artery disease, hypertension, hyperlipidemia. The patient has a history of chronic significant pain. The patient is seen by pain management doctor Dr. Sosa. He had a pain pump was placed back in January due to chronic leg pain. The patient states the pain pump worked okay. He has not had a significant infection or problems with pain pump but presented with a four-day history of worsening redness, pain and erythema to the site. The patient states the pain has gotten progressively worse; it is a 4 out of 10 currently. It was a 6 out of 10, located in the right lower quadrant pain pump site. It is worse with palpation and better with lying still. He denies any significant nausea, vomiting. The patient came to [place] where a further workup including CT scan confirming some cellulitis changes around the skin and small purulent material. Surgery was consulted for further evaluation. On my exam the patient is resting comfortably. He is complaining of redness and swelling that the pain pump site and complained that it is hot. PAST MEDICAL HISTORY 1. Atrial fibrillation. 2. Arthritis. 3. Coronary artery disease. 4. Chronic back pain and leg pain. 5. Hypertension. 6. Hyperlipidemia. 7. Colostomy. 8. Polymyalgia rheumatica. 9. Colon tumor. 10. Carpal tunnel PAST SURGICAL HISTORY 1. Cardiac cath. 2. Pain pump placed January 23, 2016. 3. Abdominal wall hernia repair. 4. Colostomy. 5. Colostomy reversal. SOCIAL HISTORY The patient denies smoking, drinking, IVDA. He does have a previous history of smoking many years ago. FAMILY HISTORY Significant for CAD. Father of [place]. ALLERGIES IODINE PRADAXA. SULFA OMNIPAQUE. REGLAN. MORPHINE. MEDICATIONS See EMR. REVIEW OF SYSTEMS GENERAL: The patient denies fevers. HEENT: Denies eye pain, ear pain. NECK: Denies neck pain. RESPIRATORY: Denies cough or wheeze. CARDIAC: Complained of arrhythmia. Denies palpitations. ABDOMEN: Complains of abdominal pain. INTEGUMENT: Complains of erythema, skin changes. : Denies dysuria, hematuria. ENDOCRINE: Denies polyuria, polydipsia. NEUROLOGIC: Complains of chronic pain. PSYCH: Denies change in mood or sensorium. PHYSICAL EXAMINATION GENERAL: The patient in no acute distress. VITAL SIGNS: Temperature 97.2, pulse 66, respiration 19, blood pressure 104/57, 94% saturation. HEENT: PERRLA. Pupils equal, reactive, round. NECK: Supple. Clavicles nontender. Bilateral expansion. RESPIRATORY: Clear. HEART: S1-S2 irregular. ABDOMEN: Soft, positive tenderness to palpation in the right lower quadrant. A 12 x 12 round, erythema area. Healed surgical scar where pain pump is placed. Minimal fluctuance. EXTREMITIES: Warm, well-perfused. NEUROLOGIC: GCS of 15. No numbness. : Within normal limits. INTEGUMENT: As above, erythema. Tender right lower quadrant abdomen. LABORATORY AND DIAGNOSTIC DATA WBC 13.2, hemoglobin 13.5, hematocrit 41.2, platelets 1.1. Sodium 135, potassium 4.5, chloride 97, BUN 24, creatinine 1, glucose 70, calcium is 7.9. INR 1, PT 11.4, PTT 32.5. RADIOLOGY Reviewed by myself. CT SCAN Soft tissue swelling and edema around pain pump characteristic of cellulitis. No discrete abscess. Multiple gallstones. ASSESSMENT An 89-year-old with chronic pain history, status post pain pump. PLAN After a full clinical, radiologic workup, discussion with the patient regarding current pain pump. The patient does have an infected pain pump. I do agree with IV antibiotics. The patient will likely need the pain pump removed as this is a foreign body in an infected field and would be concerning as a nidus for infection. Further recommend that Surgery will be available if the patient becomes septic, hypotensive, unstable and needs an tendon emergent extraction of pain pump. However, given the fact that the patient is currently stable, would recommend talking to Dr. Sosa who placed the palm for pump removal. MD JAMEY Kay/CHRISTIANO /10:16 PM /6:25 AM
[2016-06-21 06:57] LABS: CHLORIDE 98 MEQ/L (98-107); POTASSIUM 4.2 MEQ/L (3.5-5.1); SODIUM (NA) 134 MEQ/L (136-145)
[2016-06-21 07:04] LABS: ANION GAP 8 MEQ/L (5-15); BICARBONATE 28.2 MEQ/L (21.0-32.0)
[2016-06-21 07:05] LABS: BLOOD UREA NITROGEN 18 MG/DL (7-18)
[2016-06-21 07:07] LABS: AST (GOT) 19 U/L (15-37)
[2016-06-21 07:08] LABS: ALT (GPT) 17 U/L (12-78); GLOMERULAR FILTRATION RATE 71 ML/MIN (>89)
[2016-06-21 07:09] LABS: TOTAL BILIRUBIN ADULT 0.6 MG/DL (0.2-1.0)
[2016-06-21 07:10] LABS: ALKALINE PHOSPHATASE 101 U/L (45-117)
[2016-06-21] MEDS: ACETAMINOPHEN/HYDROcodone 325 MG/5 MG TAB PO PRN ×3 (08:09→23:10)
[2016-06-21] MEDS: DILTIAZEM HCL 60 MG TAB PO SCH ×4 (08:09→20:46)
[2016-06-21] MEDS: MULTIVITAMIN TAB PO SCH (08:09)
[2016-06-21] MEDS: METOPROLOL TARTRATE 50 MG TAB PO SCH ×2 (08:09→20:46)
[2016-06-21] MEDS: PANTOPRAZOLE SOD 20 MG DELAYED RELEASE TAB PO SCH (08:09)
--- NOTE | 2016-06-21 08:15 | HHI.PR ---
Subjective History of Present Illness Patient still have redness and pain and swelling right side Anterior abdominal wall Pain managment Dr Ian amaral put the pain pump in and they do not come to [facility].. d/w Dr Sosa wants to consult Dr Hampton to remove pump d/w Dr Hampton did not wants to remove the pump pain pump need to be removed per ID.Transfer the patient to [facility]. Review of Systems Constitutional Constitutional: Fatigue, Weakness Integumentary Skin Remarks Redness/swelling and pain anterior abdominal wall. Vitals/Results Intake & Output 06/20/16 06/20/16 06/21/16 15:00 23:00 07:00 Intake Total 720 ml 579 ml Output Total 500 ml Balance 720 ml 79 ml Intake Oral 720 ml 120 ml IV Total 459 ml Output Urine Total 500 ml # Voids 3 # Bowel Movements 1 0 Vital Signs Vital Signs Date Time Temp Pulse Resp B/P Pulse Ox O2 Delivery O2 Flow Rate FiO2 06/21/16 00:00 100.4 82 18 130/69 96 06/20/16 20:00 98.4 82 18 115/67 98 06/20/16 19:00 Room Air 06/20/16 16:00 97.2 66 19 104/57 94 06/20/16 12:17 93 Room Air 06/20/16 12:00 99.4 79 18 111/68 95 CBC/BMP: 06/21/16 0519 06/21/16 0519 Lab Results Laboratory Tests Test 06/21/16 05:19 White Blood Count 8.6 TH/MM3 Red Blood Count 4.14 MIL/MM3 Hemoglobin 12.0 GM/DL Hematocrit 37.0 % Mean Corpuscular Volume 89.5 FL Mean Corpuscular Hemoglobin 29.0 PG Mean Corpuscular Hemoglobin 32.4 % Concent Red Cell Distribution Width 13.1 % Platelet Count 173 TH/MM3 Mean Platelet Volume 7.7 FL Neutrophils (%) (Auto) 63.5 % Lymphocytes (%) (Auto) 15.8 % Monocytes (%) (Auto) 12.3 % Eosinophils (%) (Auto) 8.1 % Basophils (%) (Auto) 0.3 % Neutrophils # (Auto) 5.4 TH/MM3 Lymphocytes # (Auto) 1.4 TH/MM3 Monocytes # (Auto) 1.1 TH/MM3 Eosinophils # (Auto) 0.7 TH/MM3 Basophils # (Auto) 0.0 TH/MM3 CBC Comment DIFF FINAL Differential Comment Sodium Level 134 MEQ/L Potassium Level 4.2 MEQ/L Chloride Level 98 MEQ/L Carbon Dioxide Level 28.2 MEQ/L Anion Gap 8 MEQ/L Blood Urea Nitrogen 18 MG/DL Creatinine 0.99 MG/DL Estimat Glomerular Filtration 71 ML/MIN Rate Random Glucose 90 MG/DL Calcium Level 8.0 MG/DL Total Bilirubin 0.6 MG/DL Aspartate Amino Transf 19 U/L (AST/SGOT) Alanine Aminotransferase 17 U/L (ALT/SGPT) Alkaline Phosphatase 101 U/L Total Protein 5.2 GM/DL Albumin 2.4 GM/DL Physical Exam General General Appearance: Well Developed, Well Nourished, No Acute Distress, Comfortable Eyes Eye Exam: Pupils Equal, Pupils Reactive, Sclera White, Extraocular Movement Intact Throat Throat Exam: Oral Mucosa [place] & Moist, Oral Pharynx Normal Neck Neck Exam: Neck Supple, Trachea Midline Pulmonary Resp Exam: Clear Bilaterally, Breath Sounds Equal, No Distress Cardiology CV Exam: Regular, Normal Sinus Rhythm Gastrointestinal/Abdomen GI Exam: Soft, Non-Tender, Bowel Sounds Present Musculoskeletal MS Exam: Normal Tone Integumentary Skin Exam: Warm, Dry Skin Remarks erythema /swelling and tenderness anterior abdominal wall right side.. Extremeties Extremities Exam: No Edema Neurologic Neuro Exam: Alert, Awake, Oriented, Speech Clear, Moving All Extremities, No Focal Deficits VTE Prophylaxis VTE Prophylaxis Meds: Heparin PUD Prophylasis PUD Prophylaxis: Protonix Assessment/Plan Assessment/Plan ASSESSMENT AND PLAN 1. This is an 89-year male who came to the ER diagnosed with cellulitis of the anterior abdominal wall at the pain pump site area. Blood culture done negative so far. The patient is on vancomycin and Zosyn. Infectious Disease input noted. Pain managment Dr Ian Amaral put the pain pump in and they do not come to [facility]. d/w Dr Sosa wants to consult Dr Hampton to remove pump d/w Dr Hampton did not wants to remove the pump General surgery input noted. pain pump need to be removed per ID Further recommendation per investigations consultant. 2. History of hyperlipidemia. Continue with pravastatin 20 mg p.o. daily. 3. History of coronary artery disease. Continue home medication. 4. History of gastroesophageal reflux disease. Protonix 20 mg p.o. daily. 5. 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 6. History of pacemaker placement. 7. History of polymyalgia rheumatica. 8. History of atrial fibrillation. 9. History of anxiety. Continue with the Xanax 0.25 mg p.o. daily p.r.n. anxiety. 10. Mild hyponatremia. We will monitor. 11. DVT prophylaxis. Heparin 5000 units subcutaneous twice a day. 12. GI prophylaxis. Protonix 20 mg p.o. daily. Check CBC with diff CMP in AM. We are going to manage the patient on a daily basis and make recommendations on a daily basis. Discussed Condition with: Patient Johnathan Hernandez MD Jun 21, 2016 08:15
[2016-06-21] MEDS: SODIUM CHLORIDE 0.9% FLUSH 5 ML FLUSH FLUSH SCH ×2 (08:16→20:46)
[2016-06-21 08:30] VITALS: BP 118/63; PULSE 90; RESP 14; TEMP 99.2; O2SAT 93
[2016-06-21] MEDS: ONDANSETRON HCL 4 MG/2 ML VIAL IVP PRN ×2 (13:15→18:53)
[2016-06-21] MEDS: HEPARIN SODIUM - SQ 10,000 UNITS/ML VIAL SQ SCH ×2 (13:15→23:06)
[2016-06-21 13:34] VITALS: BP 101/51; PULSE 67; RESP 14; TEMP 97; O2SAT 95
--- NOTE | 2016-06-21 16:01 | PD.ID.CON ---
History of Present Illness Service ID Consult Requested By Dr Hernandez Reason for Consult infected pump Primary Care Physician Amanuel Harris MD Diagnoses: History of Present Illness The patient is an 89-year-old male with significant multiple medical issues, a past medical history of atrial fibrillation, arthritis, coronary artery disease, hypertension, hyperlipidemia. and chronic pain (back ) The patient is seen by pain management doctor Dr. Sosa. He had a pain pump was placed back in January due to chronic leg pain. Four days prior to presentation pt developped pain, swelling and redness of abdominal wall around pump Pt has fever up to 100.6 and leukocytos His blood clx are negative and wound clx not done / lack of drainage Pt is on empiric abx CT abd showed Soft tissue swelling and edema around the infusion pump Review of Systems ROS Limitations: Poor Historian Past Family Social History Allergies: Coded Allergies: Contrast Media (Verified Allergy, Severe, EDEMA, 06/18/16) Iodine (Verified Allergy, Severe, "SWELLS", 06/18/16) Pradaxa (Verified Allergy, Severe, SHAKES/WEAKNESS, 06/18/16) Sulfa (Verified Allergy, Severe, NAUSEA, 06/18/16) RASH Iohexol (OMNIPAQUE) (Verified Allergy, Unknown, IV REACTION ON MEDROL.DO NOT GIVE!!!!!, 06/18/16) Uncoded Allergies: REGLAN WITH MORPHINE (Adverse Reaction, Severe, HALLUCINATE, 03/26/16) CONFIRMED 11/02/13 TM.. Past Medical History 1. Atrial fibrillation. 2. Arthritis. 3. Coronary artery disease. 4. Chronic back pain and leg pain. 5. Hypertension. 6. Hyperlipidemia. 7. Colostomy. 8. Polymyalgia rheumatica. 9. Colon tumor. 10. Carpal tunnel Past Surgical History 1. Cardiac cath. 2. Pain pump placed January 23, 2016. 3. Abdominal wall hernia repair. 4. Colostomy. 5. Colostomy reversal. Active Ordered Medications Medications where reviewed in EMR Antibiotics Include: vancoimycin zosyn Family History Significant for CAD. Social History The patient denies smoking, drinking, IVDA. He does have a previous history of smoking many years ago. Physical Exam Vital Signs Vital Signs Date Time Temp Pulse Resp B/P Pulse Ox O2 Delivery O2 Flow Rate FiO2 06/21/16 13:34 97.0 67 14 101/51 95 06/21/16 08:30 99.2 90 14 118/63 93 06/21/16 07:00 Room Air 06/21/16 00:00 100.4 82 18 130/69 96 06/20/16 20:00 98.4 82 18 115/67 98 06/20/16 19:00 Room Air Physical Exam CONSTITUTIONAL/GENERAL: This is an aelderly frail patient, in no apparent distress. TUBES/LINES/DRAINS: SKIN: No jaundice, rashes, or lesions. Ecchymoses on upper extremities. No wounds seen anteriorly. Skin temperature appropriate. Not diaphoretic. Palpable devile in RLQ with large area of fluctuance, erythema and tender to aplpation HEAD: Atraumatic. Normocephalic. EYES: Pupils equal and round and reactive. Extraocular motions intact. No scleral icterus. No injection or drainage. Fundi not examined. ENT: Hearing grossly normal. Nose without bleeding or purulent drainage. Throat without visible erythema, exudates, masses, or lesions. NECK: Trachea midline. Supple, nontender. CARDIOVASCULAR: Regular rate and rhythm without murmurs, gallops, or rubs. No JVD. Peripheral pulses symmetric. RESPIRATORY/CHEST: Symmetric, unlabored respirations. Clear to auscultation. Breath sounds equal bilaterally. No wheezes, rales, or rhonchi. GASTROINTESTINAL: Abdomen soft, non-tender, nondistended. No hepato-splenomegaly , or palpable masses. No guarding. Bowel sounds present. GENITOURINARY: Without palpable bladder distension MUSCULOSKELETAL: Extremities without clubbing, cyanosis, or edema. No joint tenderness or effusion noted. No calf tenderness. No mottling or clubbing. LYMPHATICS: No palpable cervical or supraclavicular adenopathy. NEUROLOGICAL: Awake and alert. Motor and sensory grossly within normal limits. Follows commands. speech nl. Moves all extremities. PSYCHIATRIC: No obvious anxiety/depression. no apparent hallucinations or other psychotic thought process. Laboratory Laboratory Tests Test 06/21/16 05:19 White Blood Count 8.6 Red Blood Count 4.14 Hemoglobin 12.0 Hematocrit 37.0 Mean Corpuscular Volume 89.5 Mean Corpuscular Hemoglobin 29.0 Mean Corpuscular Hemoglobin 32.4 Concent Red Cell Distribution Width 13.1 Platelet Count 173 Mean Platelet Volume 7.7 Neutrophils (%) (Auto) 63.5 Lymphocytes (%) (Auto) 15.8 Monocytes (%) (Auto) 12.3 Eosinophils (%) (Auto) 8.1 Basophils (%) (Auto) 0.3 Neutrophils # (Auto) 5.4 Lymphocytes # (Auto) 1.4 Monocytes # (Auto) 1.1 Eosinophils # (Auto) 0.7 Basophils # (Auto) 0.0 CBC Comment DIFF FINAL Differential Comment Sodium Level 134 Potassium Level 4.2 Chloride Level 98 Carbon Dioxide Level 28.2 Anion Gap 8 Blood Urea Nitrogen 18 Creatinine 0.99 Estimat Glomerular Filtration 71 Rate Random Glucose 90 Calcium Level 8.0 Total Bilirubin 0.6 Aspartate Amino Transf 19 (AST/SGOT) Alanine Aminotransferase 17 (ALT/SGPT) Alkaline Phosphatase 101 Total Protein 5.2 Albumin 2.4 Date/Time Procedure Status Source Growth 06/18/16 21:25 Aerobic Blood Culture - Preliminary Resulted Blood Peripheral NO GROWTH IN 3 DAYS 06/18/16 21:25 Anaerobic Blood Culture - Preliminary Resulted Blood Peripheral NO GROWTH IN 3 DAYS Result Diagram: 06/21/16 0519 06/21/16 0519 Imaging Last Impressions Abdomen/Pelvis CT 06/18/162106 Signed Impressions: Service Date/Time: Saturday, June 18, 2016 22:03 - CONCLUSION: 1. Soft tissue swelling and edema around the infusion pump in right lower quadrant most characteristic of cellulitis. No discrete abscess identified. 2. No acute findings within the abdomen. Mild constipation. Multiple gallstones. Mild anasarca. Basilar lung airspace disease has improved. Ki Maldonado MD Assessment and Plan Assessment and Plan Pain pump infection, likely abscess formation and cellulitis SIRS with low grade fever and leukocytosis - cont vancomycin - dc zosyn - recommend pump removal and abx adjustment based on op clx results - conservative tx with empiric abx with retained pump is not recommended 2/2 high likely briceño oaf failure Discussed Condition With pt RN Jared Lange,Adrienne Torres MD Jun 21, 2016 16:01
[2016-06-21 17:54] VITALS: BP 118/78; PULSE 80; RESP 16; TEMP 98.5; O2SAT 98
[2016-06-21 20:00] VITALS: BP 118/50; PULSE 90; RESP 18; TEMP 98; O2SAT 92
[2016-06-21] MEDS: ASPIRIN EC 81 MG TABEC PO SCH (20:45)
[2016-06-21] MEDS: VANCOMYCIN INJ 1,000 MG in SODIUM CHLOR 0.9% 250 ML INJ 250 ML IV SCH (20:45)
[2016-06-21] MEDS ORDERED: PHARMACY ORDERED LAB XX ONE (20:45)
[2016-06-21] MEDS: PRAVASTATIN SOD 20 MG TAB PO SCH (20:46)
[2016-06-22] VITALS: BP 114/57; PULSE 79; RESP 18; TEMP 98; O2SAT 93
[2016-06-22] MEDS: ACETAMINOPHEN/HYDROcodone 325 MG/5 MG TAB PO PRN ×4 (04:36→23:22)
[2016-06-22 08:00] VITALS: BP 132/61; PULSE 85; RESP 20; TEMP 97.8; O2SAT 90
[2016-06-22] MEDS: METOPROLOL TARTRATE 50 MG TAB PO SCH ×2 (08:08→20:45)
[2016-06-22] MEDS: PANTOPRAZOLE SOD 20 MG DELAYED RELEASE TAB PO SCH (08:09)
[2016-06-22] MEDS: MULTIVITAMIN TAB PO SCH (08:09)
[2016-06-22] MEDS: SODIUM CHLORIDE 0.9% FLUSH 5 ML FLUSH FLUSH SCH ×2 (08:09→20:52)
[2016-06-22] MEDS: DILTIAZEM HCL 60 MG TAB PO SCH ×4 (08:09→20:45)
[2016-06-22] MEDS: HEPARIN SODIUM - SQ 10,000 UNITS/ML VIAL SQ SCH ×2 (11:21→23:18)
[2016-06-22 12:00] VITALS: BP 136/63; PULSE 81; RESP 20; TEMP 98.1; O2SAT 92
[2016-06-22 16:00] VITALS: BP 144/63; PULSE 85; RESP 20; TEMP 98.2; O2SAT 94
[2016-06-22 17:55] VITALS: BP 118/82; PULSE 82; RESP 19; TEMP 98.5
[2016-06-22] MEDS: VANCOMYCIN INJ 1,500 MG in SODIUM CHLORID 0.9% 500 ML INJ 500 ML IV SCH (18:13)
--- NOTE | 2016-06-22 18:44 | HHI.PR ---
Subjective History of Present Illness Patient still have redness and pain and swelling right side Anterior abdominal wall Pain managment Dr Ian amaral put the pain pump in and they do not come to [facility].. d/w Dr Sosa wants to consult Dr Hampton to remove pump d/w Dr Hampton did not wants to remove the pump pain pump need to be removed per ID.Transfer the patient to [facility] where Dr Ian amaral have privilages ..d/w RN and Incharge RN. d/w Dr Hali bob hosptalist accepted the patient for [facility] d/w family and patient in detail about whole situation thankful for my effort and agree with plan. Review of Systems Constitutional Constitutional: Fatigue, Weakness Integumentary Skin Remarks Redness/swelling and pain anterior abdominal wall. Vitals/Results Intake & Output 06/21/16 06/21/16 06/22/16 15:00 23:00 07:00 Intake Total 500 ml 370 ml Output Total 200 ml Balance 500 ml 170 ml Intake Oral 500 ml 120 ml IV Total 250 ml Output Urine Total 200 ml # Voids 2 # Bowel Movements 1 0 Vital Signs Vital Signs Date Time Temp Pulse Resp B/P Pulse Ox O2 Delivery O2 Flow Rate FiO2 06/22/16 11:05 Room Air 06/22/16 08:00 97.8 85 20 132/61 90 06/22/16 00:00 98.0 79 18 114/57 93 06/21/16 21:00 Room Air 06/21/16 20:00 98.0 90 18 118/50 92 CBC/BMP: 06/21/16 0519 06/22/16 0715 Lab Results Laboratory Tests Test 06/21/16 06/22/16 20:45 07:15 Vancomycin Level Trough 7.4 MCG/ML Creatinine 0.88 MG/DL Estimat Glomerular Filtration 82 ML/MIN Rate Physical Exam General General Appearance: Well Developed, Well Nourished, No Acute Distress, Comfortable Eyes Eye Exam: Pupils Equal, Pupils Reactive, Sclera White, Extraocular Movement Intact Throat Throat Exam: Oral Mucosa [place] & Moist, Oral Pharynx Normal Neck Neck Exam: Neck Supple, Trachea Midline Pulmonary Resp Exam: Clear Bilaterally, Breath Sounds Equal, No Distress Cardiology CV Exam: Regular, Normal Sinus Rhythm Gastrointestinal/Abdomen GI Exam: Soft, Non-Tender, Bowel Sounds Present Musculoskeletal MS Exam: Normal Tone Integumentary Skin Exam: Warm, Dry Skin Remarks erythema /swelling and tenderness anterior abdominal wall right side.. Extremeties Extremities Exam: No Edema Neurologic Neuro Exam: Alert, Awake, Oriented, Speech Clear, Moving All Extremities, No Focal Deficits VTE Prophylaxis VTE Prophylaxis Meds: Heparin PUD Prophylasis PUD Prophylaxis: Protonix Assessment/Plan Assessment/Plan ASSESSMENT AND PLAN 1. This is an 89-year male who came to the ER diagnosed with cellulitis of the anterior abdominal wall at the pain pump site area. Blood culture done negative so far. The patient is on vancomycin and Zosyn. Infectious Disease input noted. pain pump need to be removed per ID Further recommendation per treasury consultant. 2. History of hyperlipidemia. Continue with pravastatin 20 mg p.o. daily. 3. History of coronary artery disease. Continue home medication. 4. History of gastroesophageal reflux disease. Protonix 20 mg p.o. daily. 5. 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 6. History of pacemaker placement. 7. History of polymyalgia rheumatica. 8. History of atrial fibrillation. 9. History of anxiety. Continue with the Xanax 0.25 mg p.o. daily p.r.n. anxiety. 10. Mild hyponatremia. We will monitor. 11. DVT prophylaxis. Heparin 5000 units subcutaneous twice a day. 12. GI prophylaxis. Protonix 20 mg p.o. daily. Check CBC with diff CMP in AM. We are going to manage the patient on a daily basis and make recommendations on a daily basis. Dr Ian amaral put the pain pump in and they do not come to [facility].. d/w Dr Sosa wants to consult Dr Hampton to remove pump d/w Dr Hampton did not wants to remove the pump pain pump need to be removed per ID.Transfer the patient to [facility] where Dr Ian amaral have privilages ..d/w RN and Sheeba RN. d/[facility] d/w family and patient in detail about whole situation thankful for my effort and agree with plan. Discussed Condition with: Patient, Spouse, Son Dutch Hernandezangela LEIVA Jun 22, 2016 18:44
[2016-06-22 20:14] VITALS: BP 131/81; PULSE 84; RESP 17; TEMP 98.2; O2SAT 90
[2016-06-22] MEDS: PRAVASTATIN SOD 20 MG TAB PO SCH (20:45)
[2016-06-22] MEDS: ASPIRIN EC 81 MG TABEC PO SCH (20:46)
[2016-06-23] VITALS: BP 133/60; PULSE 77; RESP 20; TEMP 98.2; O2SAT 94
[2016-06-23 04:00] VITALS: BP 133/62; PULSE 80; RESP 20; TEMP 97.9; O2SAT 93
[2016-06-23] MEDS: ACETAMINOPHEN/HYDROcodone 325 MG/5 MG TAB PO PRN ×3 (05:38→17:09)
[2016-06-23 08:00] VITALS: BP 144/73; PULSE 84; RESP 22; TEMP 98.5; O2SAT 93
[2016-06-23] MEDS: SODIUM CHLORIDE 0.9% FLUSH 5 ML FLUSH FLUSH SCH (08:20)
[2016-06-23] MEDS: PANTOPRAZOLE SOD 20 MG DELAYED RELEASE TAB PO SCH (08:20)
[2016-06-23] MEDS: MULTIVITAMIN TAB PO SCH (08:20)
[2016-06-23] MEDS: METOPROLOL TARTRATE 50 MG TAB PO SCH (08:24)
[2016-06-23] MEDS: DILTIAZEM HCL 60 MG TAB PO SCH ×3 (08:24→18:11)
--- NOTE | 2016-06-23 08:28 | HHI.PR ---
Subjective History of Present Illness Patient still have redness and pain and swelling right side Anterior abdominal wall Pain managment Dr Ian amaral put the pain pump in and they do not come to [facility].. d/w Dr Sosa wants to consult Dr Hampton to remove pump d/w Dr Hampton did not wants to remove the pump pain pump need to be removed per ID.Transfer the patient to [facility] where Dr Ian amaral have privilages ..d/w RN and [place] RN. d/w Dr Hali bob hosptalist accepted the patient for [facility] d/w family and patient in detail about whole situation thankful for my effort and agree with plan. Patient transferred to [facility] Review of Systems Constitutional Constitutional: Fatigue, Weakness Integumentary Skin Remarks Redness/swelling and pain anterior abdominal wall. Vitals/Results Intake & Output 06/22/16 06/22/16 06/23/16 15:00 23:00 07:00 Intake Total 240 ml 260 ml 220 ml Output Total 450 ml 200 ml 400 ml Balance -210 ml 60 ml -180 ml Intake Oral 240 ml 260 ml 220 ml Output Urine Total 450 ml 200 ml 400 ml # Bowel Movements 0 0 0 Vital Signs Vital Signs Date Time Temp Pulse Resp B/P Pulse Ox O2 Delivery O2 Flow Rate FiO2 06/23/16 04:00 97.9 80 20 133/62 93 06/23/16 00:00 98.2 77 20 133/60 94 06/22/16 20:45 Room Air 06/22/16 20:14 98.2 84 17 131/81 90 06/22/16 17:55 98.5 82 19 118/82 06/22/16 16:00 98.2 85 20 144/63 94 06/22/16 12:00 98.1 81 20 136/63 92 06/22/16 11:05 Room Air CBC/BMP: 06/21/16 0519 06/22/16 0715 Physical Exam General General Appearance: Well Developed, Well Nourished, No Acute Distress, Comfortable Eyes Eye Exam: Pupils Equal, Pupils Reactive, Sclera White, Extraocular Movement Intact Throat Throat Exam: Oral Mucosa [place] & Moist, Oral Pharynx Normal Neck Neck Exam: Neck Supple, Trachea Midline Pulmonary Resp Exam: Clear Bilaterally, Breath Sounds Equal, No Distress Cardiology CV Exam: Regular, Normal Sinus Rhythm Gastrointestinal/Abdomen GI Exam: Soft, Non-Tender, Bowel Sounds Present Musculoskeletal MS Exam: Normal Tone Integumentary Skin Exam: Warm, Dry Skin Remarks erythema /swelling and tenderness anterior abdominal wall right side.. Extremeties Extremities Exam: No Edema Neurologic Neuro Exam: Alert, Awake, Oriented, Speech Clear, Moving All Extremities, No Focal Deficits VTE Prophylaxis VTE Prophylaxis Meds: Heparin PUD Prophylasis PUD Prophylaxis: Protonix Assessment/Plan Assessment/Plan ASSESSMENT AND PLAN 1. This is an 89-year male who came to the ER diagnosed with cellulitis of the anterior abdominal wall at the pain pump site area. Blood culture done negative so far. The patient is on vancomycin and Zosyn. Infectious Disease input noted. pain pump need to be removed per ID Further recommendation per physician practice consultant. 2. History of hyperlipidemia. Continue with pravastatin 20 mg p.o. daily. 3. History of coronary artery disease. Continue home medication. 4. History of gastroesophageal reflux disease. Protonix 20 mg p.o. daily. 5. 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 6. History of pacemaker placement. 7. History of polymyalgia rheumatica. 8. History of atrial fibrillation. 9. History of anxiety. Continue with the Xanax 0.25 mg p.o. daily p.r.n. anxiety. 10. Mild hyponatremia. We will monitor. 11. DVT prophylaxis. Heparin 5000 units subcutaneous twice a day. 12. GI prophylaxis. Protonix 20 mg p.o. daily. Check CBC with diff CMP in AM. We are going to manage the patient on a daily basis and make recommendations on a daily basis. Dr Ian amaral put the pain pump in and they do not come to [facility].. d/w Dr Sosa wants to consult Dr Hampton to remove pump d/w Dr Hampton did not wants to remove the pump pain pump need to be removed per ID.Transfer the patient to [facility] where Dr Ian amaral have privilages ..d/w RN and Sheeba RN. d/[facility] the [facility] d/w family and patient in detail about whole situation thankful for my effort and agree with plan. Patient transferred to [facility]. Discussed Condition with: Patient Johnathan Hernandez MD Jun 23, 2016 08:28
[2016-06-23] MEDS: HEPARIN SODIUM - SQ 10,000 UNITS/ML VIAL SQ SCH (11:15)
[2016-06-23 12:00] VITALS: BP 125/58; PULSE 78; RESP 20; TEMP 97.9; O2SAT 93
[2016-06-23 16:05] VITALS: BP 141/55; PULSE 79; RESP 20; TEMP 98.2; O2SAT 88
[2016-06-23] MEDS: VANCOMYCIN INJ 1,500 MG in SODIUM CHLORID 0.9% 500 ML INJ 500 ML IV SCH (18:11)
[2016-06-25] MEDS ORDERED: PHARMACY ORDERED LAB XX ONE (17:45)
--- NOTE | 2016-06-28 07:27 | MD ---
cc: DANIELLE ALMAZAN MD ADMISSION DATE: 06/18/2016 DISCHARGE DATE: 06/23/2016 DISPOSITION Okay to transfer the patient to [facility]. CONDITION AT THE TIME OF DISCHARGE Satisfactory. ACTIVITY As tolerated. DIET Cardiac diet. ALLERGIES CONTRAST MEDIA. IODINE. OMNIPAQUE. PRADAXA. REGLAN. MORPHINE. SULFA. DISCHARGE MEDICATIONS 1. Vancomycin. 2. Aspirin 162 mg daily. 3. Pravastatin 20 mg p.o. daily. 4. Diltiazem 60 mg q.i.d. 5. Metoprolol 50 mg twice a day. 6. Multivitamin p.o. daily. 7. Cache 5/325 q. 4 hours. 8. Xanax 0.25 mg p.o. daily. 9. Furosemide 20 mg p.o. daily. 10. Potassium chloride 10 mEq p.o. daily. 11. Protonix 20 mg p.o. daily. 12. Zosyn IV q. 8 hours. 13. Heparin 5000 units q. 12-hours. ADMISSION DIAGNOSIS Cellulitis of the pain pump site on the anterior abdominal wall. DISCHARGE DIAGNOSIS Cellulitis of the anterior abdominal wall got worse. The patient needed the pump to be removed. The patient transferred to [facility]. Dr. Sosa, who put the pump in, will remove the pump. OTHER COMORBIDITIES 1. History of hyperlipidemia. 2. Coronary artery disease. 3. Gastroesophageal reflux disease. 4. Benign tumor removed from the colon, status post colostomy and reversal of colostomy. 5. History of pacemaker placement. 6. History of polymyalgia rheumatica. 7. Atrial fibrillation. 8. Anxiety. HOSPITAL COURSE This is an 89-year male admitted with cellulitis of the of the anterior abdominal wall, seen by Infectious Disease doctor, Dr. Casarez, also seen by Dr. Coleman, General Surgery. The patient needs a pain pump to be removed. I have made multiple calls and discussed with multiple physicians including Dr. Peraza from [facility] as Dr. Patterson, the Spike Driver for Department of Surgery and also talked with Dr. Leandro Sosa and Jared of General Surgery and also with Dr. Hampton and Dr. Edmondson. The patient needs to have the pump be removed. Dr. Hampton did not want to remove the pump, said that Dr. Sosa put the patient on high doses of pain medication and after removing the pump so there is probable withdrawal from the narcotic pain medications like morphine. The case also discussed with Dr. Peraza who wants me to consult Dr. Patterson, Spike Driver of Surgery. I also discussed the case with Dr. Coleman of General Surgery. He has not removed a pump before, so he said he cannot remove it. He said he cannot remove it because he has not removed a pain pump before. Eventually the patient was transferred to [facility] where Dr. Leandro Sosa has privileges and he can go there and removed the pump. All discussion held with the patient as well as the family. The patient's son was very thankful for the effort I had done for his father. The patient also had leukocytosis which is improved, had anemia with a hemoglobin of 11.6. The patient had mild hyponatremia and hypocalcemia at 7.4 calcium. INR was 1.0, APTT was 32.5. Urine exam shows small occult blood, protein high. CONDITION ON DISCHARGE The patient is discharged in satisfactory condition. Further details in the medical record. Danielle Almazan MD EA/CHRISTIANO /4:50 AM /7:11 AM
== END 2016-06-23 19:04 | disposition short-term general hospital (02) | DRG 92 ==
LOC: PHED 18:33 → PHEDA 23:11 → PH3A 06-19 01:04 → N04A 06-21 20:12
PROVIDERS: ADMIT Family Medicine; ATTEND Family Medicine
DX: T85.738A Infection and inflammatory reaction due to other nervous system device, implant or graft, initial encounter (principal); L03.311 Cellulitis of abdominal wall; I48.91 Unspecified atrial fibrillation; E87.1 Hypo-osmolality and hyponatremia; D64.9 Anemia, unspecified; G89.29 Other chronic pain; M54.9 Dorsalgia, unspecified; M25.569 Pain in unspecified knee; M35.3 Polymyalgia rheumatica; Z79.891 Long term (current) use of opiate analgesic; E78.5 Hyperlipidemia, unspecified; I25.10 Atherosclerotic heart disease of native coronary artery without angina pectoris; K21.9 Gastro-esophageal reflux disease without esophagitis; Z95.0 Presence of cardiac pacemaker; F41.9 Anxiety disorder, unspecified; E83.51 Hypocalcemia; I10 Essential (primary) hypertension; Z79.82 Long term (current) use of aspirin; Z87.891 Personal history of nicotine dependence
CPT/HCPCS: 74176; 80048; 80053; 80202; 81001; 82565; 83605; 85025; 85610; 85730; 87040; 87641; 96365; 96367; J1644; J2270; J2405; J2543; J3370; J7030; J7040; J7050